=== PATIENT | female | born 1990 | race Caucasian/White ===

== ENCOUNTER → 2021-09-29 12:26 | Outpatient (CLI) | payer OTHER, SELFPAY ==
--- NOTE | 2021-09-29 | DI.MRI.S_ITS ---
PROCEDURE: MR LUMBAR SPINE WO CON INDICATIONS: Low back pain, unspecified TECHNIQUE: Noncontrast sagittal T1 spin echo and T2 fast echo, sagittal STIR, and T2 fast spin echo through the lumbar spine. In cases with scoliosis, additional coronal T2 fast spin echo may be performed. COMPARISON: None. FINDINGS: Image quality: Excellent. Alignment and Curvature: There is normal bony alignment. Bone Marrow: Marrow is of normal overall signal. No acute vertebral body compression fractures. Spinal Cord: Conus medullaris terminates at the L2 level. Visualized cord demonstrates normal signal and size. Paraspinous Soft Tissues: No paravertebral masses. T12-L1: Normal appearance. L1-L2: Normal appearance. L2-L3: Normal appearance. L3-L4: Normal appearance. L4-L5: Normal appearance. L5-S1: Loss of disc signal. Mild, diffuse disc bulge. Small central disc protrusion. No central stenosis. No neural foraminal narrowing. No neural compression. IMPRESSION: 1. Mild L5-S1 degenerative disc disease. 2. No central stenosis. 3. No neural foraminal narrowing. 4. No neural compression. Dictated by: Bhakti Wagner MD, PhD on 09/29/2021 at 15:19 Approved by: Bhakti Wagner MD, PhD on 09/29/2021 at 15:20
== END ==
PROVIDERS: PCP Student in an Organized Health Care Education/Training Program; Referring Provider Student in an Organized Health Care Education/Training Program; Visit Provider Student in an Organized Health Care Education/Training Program
DX: M51.37 Other intervertebral disc degeneration, lumbosacral region (principal); M54.50 Low back pain, unspecified
CPT/HCPCS: 72148